=== PATIENT | female | born 1945 | race Caucasian/White ===

== ENCOUNTER → 2019-10-03 09:01 | Outpatient (CLI) | payer MEDICARE, BC ==
--- NOTE | ~2019-10-03 | EC ---
PATIENT:CATALINO PETERSON DATE OF SERVICE: 10/03/19 SEX: F MEDICAL RECORD: [id number] DATE OF : 43 LOCATION:[facility] AGE OF PATIENT: 74 ADMISSION DATE: 10/03/19 REFERRING PHYSICIAN: INTERPRETING PHYSICIAN: DON CASE MD ECHOCARDIOGRAM REPORT ECHO CHARGES 4 ECHO COMPLETE Date: 10/03/19 CLINICAL DIAGNOSIS: EDEMA/SOB/ANGINA/URIBE H/O HTN ECHOCARDIOGRAPHIC MEASUREMENTS (adult normal given) AC root (d.<3.7cm) 2.9 cm LV Septum d (<1.2 cm> 1.0 cm Valve Excursion 1.6 cm LV Septum (systole) 1.3 cm Left Atria (s.<4.0cm> 3.9 cm LVPW d(<1.2cm) 0.8 cm RV (d.<2.3cm) 2.4 cm LVPW (sytole) 1.0 cm LV diastole(<5.6CM) 6.4 cm MV E-F(>70mm/sec) cm LV systole 5.7 cm LVOT Diameter 1.8 cm MV exc.(>10mm) cm Est.ejection fraction (50-75%) % DOPPLER: LVIT cm/sec A 89.0 cm/sec E 101 cm/sec LA cm/sec RVSP 62.3 mmHg LVOT 48.0 cm/sec AOP1/2T m/s Asc. Ao 128 cm/sec RVOT 33.0 cm/sec RA cm/sec PA 59.0 cm/sec AV Gradient Peak 6.6 mmHg AV Mean 3.4 mmHg AV Area 0.8 cm MV Gradient Peak 5.0 mmHg MV Mean 2.3 mmHg MV Area cm COMMENTS: OP - HC Bicycle Ii Assembler: 1 RADHA ELENA Trouble Locator Test Desk: 1 Dr. Case TAPE# PACS Pericardial Effusion N DATE OF SERVICE: Echocardiogram FINDINGS: 1. Left ventricular chamber size is dilated. Left ventricular systolic function is markedly reduced at 15% to 20%. 2. Left atrium is within normal limits. Right atrium and right ventricle chamber sizes are mildly dilated. 3. Valvular structures have normal structure and motion. ECHOCARDIOGRAM REPORT [id number] CATALINO PETERSON 4. Doppler interrogation reveals moderate mitral regurgitation, moderate tricuspid regurgitation, no other valvular insufficiency or stenosis. Pulmonary systolic pressure is significantly elevated estimated at 62 mmHg. 5. No evidence of pericardial effusion or left ventricular thrombus. TRANSINT:[id number] Voice Confirmation ID: [id number] DOCUMENT ID: [id number] DON CASE MD CC: [id number] DICTATION DATE: 10/04/19 1400 UPHOLSTERER OUTSIDE: 10/04/192215 DEP CLI 10/03/19 [facility] [address] [id number]
--- NOTE | ~2019-10-03 | ST ---
PATIENT:CATALINO PETERSON MEDICAL RECORD: [id number] SEX: F LOCATION:[facility] ORDER #: ADMISSION DATE: 10/03/19 AGE OF PATIENT: 74 REFERRING PHYSICIAN: INTERPRETING PHYSICIAN: DON SEBASTIAN MD DATE OF SERVICE: 10/03/2019 INDICATION: Angina, shortness of breath, hypertension. TECHNIQUE: She was exercised on standard Lexiscan protocol with 33 mCi of sestamibi injected at peak stress, 10 mCi were used previously for rest images. FINDINGS: Gated SPECT reveals dilated cardiomyopathy, ejection fraction markedly reduced at 16%. SPECT imaging; Cardiolite was used as myocardial perfusion agent. There is a fixed perfusion defect inferiorly and apically compatible with previous inferoapical myocardial infarction; however, there is reversible ongoing ischemia in the lateral distribution. This includes apical lateral, mid lateral, basal lateral segments. OVERALL IMPRESSION: Markedly abnormal nuclear stress test with an ischemic cardiomyopathy, ongoing ischemia, suggestive of multivessel coronary artery disease. This is a high risk abnormal nuclear stress test. TRANSINT:[id number] Voice Confirmation ID: [id number] DOCUMENT ID: [id number] DON SEBASTIAN MD CC: HOA BERRY MD [id number] DICTATION DATE: 10/04/19 1523 NANNY CAREGIVER: 10/05/19 0816 DEP CLI 10/03/19 [id number] [place] [address]
== END | disposition home or self-care (01) ==
LOC: D.HCCECHO 09:01
PROVIDERS: ATTEND Internal Medicine Interventional Cardiology
DX: I25.119 Atherosclerotic heart disease of native coronary artery with unspecified angina pectoris (principal)

== ENCOUNTER 2019-10-11 06:54 | Inpatient (IN) | payer MEDICARE, BC ==
[~2019-10-11] VITALS: Ht 165.1 cm; Wt 56.0 kg
[2019-10-11] VITALS (33 sets, daily range): BP systolic 97–129; BP diastolic 61–81; Ht 165.1 cm; Wt 56.0 kg
--- NOTE | ~2019-10-11 | HEMODYNAMI ---
PATIENT:CATALINO PETERSON MEDICAL RECORD: [id number] : 43 LOCATION:[facility] ADMISSION DATE: 10/11/19 Generatedon:10/11/201911:57 Patient name: CATALINO PETERSON Patient #: [id number] SSN: [id number] : 1945 Date of study: 10/11/2019 Page: Of Hemodynamic Procedure Report Patient Data Patient Demographics Procedure consent was obtained First Name: CATALINO Gender: Female Last Name: KRISTEN : 1945 Patient #: [id number] Age: 74 year(s) Race: SSN: [id number] Additional ID: [id number] Contact details [address]: [address] [place] [address] State: [place] City: [place] Zip code: [address] Past Medical History Allergies Allergen Reaction Date Comments Reported Other allergy 10/11/2019 PCN Admission Admission Data Admission Date: 10/11/2019 Admission Time: 6:54 Arrival Date: 10/11/2019 Arrival Time: 0:00 Admit Source: Other Insurance Payor: Medicare Room #: D.CL04 [facility] #: [id number] Height (in.): 65 BSA: 1.59 (m2) Height (cm.): 165.1 BMI: 19.8 (kg/m2) Weight (lbs.): 119 Weight (kg.): 53.98 Lab Results Lab Result Date: 10/11/2019 Lab Result Time: 0:00 Biochemistry Name Units Result Min Max BUN mg/dl 18 --(---*)-- 7 18 Creatinine mg/dl 1 --(--*-)-- 0.6 1.3 eGFR ml/min 57 *-(----)-- 90 120 NONAFRICAN CBC Name Units Result Min Max Hematocrit % 43.8 --(*---)-- 42 54 Hemoglobin g/dl 14.3 --(*---)-- 13.5 17.5 Procedure Procedure Types Cath Procedure Diagnostic Procedure LHC LH w/Coronaries FFR/IVUS FFR Initial Temporary Pacemaker Sedation Charges Moderate Sedation up to 45 minutes PCI Procedure Coronary Stent Coronary Stent Initial Coronary Stent Initial x2 Hemochron ACT Test Peripheral Cath Diagnostic Procedure [facility] Peripheral Procedures Fmkqw-Lvbfjok-Dok-Off Peripheral vascular Intervention Angioplasty Angioplasty Iliac Initial Stent Stent Iliac w/plasty Initial Procedure Description Procedure Date Procedure Date: 10/11/2019 Procedure Start Time: 10:47 Procedure End Time: 11:47 Procedure Staff Name Function Fred Case MD Performing Physician Rosi Castano RT Monitor Elizabeth Tobar RN Nurse Margaret Brenner RT Scrub Indication Angina Shortness of breath Procedure Data Cath Procedure Fluoroscopy Diagnostic fluoroscopy Total fluoroscopy Time: time: 16.2 min 16.2 min Diagnostic fluoroscopy Total fluoroscopy dose: 616 dose: 616 mGy mGy Contrast Material Contrast Material Type Amount (ml) Isovue [id number] Entry Location Entry Primary Successful Side Size (Fr) Upsize Upsize 2 Entry Closu re Successful Closure Location 1 (Fr) (Fr) Remarks Devic e Remarks Radial Right 6 Fr Short artery Femoral Right 5 Fr 6 Fr 6 Fr Exose al artery Short Mid-Length Femoral Left 6 Fr Exose al artery Mid-Length Femoral Right 6 Fr Short Manua l vein Compr ession Radial Right 6 Fr Short Mecha nical artery Compr ession Estimated blood loss: 10 ml Diagnostic catheters Device Type Used For End Catheter Placement DIAGNOSTIC [place] 110cm 5 Procedure Fr catheter ([id number]) MULTIPACK Pigtail 5 Fr Procedure catheter MULTIPACK JL 4.0 5Fr Procedure catheter MULTIPACK 3DRC 5Fr Procedure catheter Procedure Complications No complications Procedure Medications Medication Administration Route Dosage 0.9% NaCl I.V. 100 ml/hr Oxygen etCO2 Nasal cannula 2 l/min Lidocaine 2% added to field 20 Heparin Flush Bag added to field 2 bags (1000units/500ml NS) Radial Cocktail added to field 1 syringe (Verapamil 2mg/Nitro 400mcg/Heparin 1500units) Versed I.V. 2 mg Fentanyl I.V. 50 mcg Heparin Bolus I.V. 4000 units Integrilin (Bolus I.V. 5 ml 2mg/ml) Integrilin (Bolus wasted 5 ml 2mg/ml) Plavix P.O. 600 mg Fentanyl I.V. 25 mcg Atropine I.V. 1 mg Dopamine I.V. drip 5 mcg/kg/min (400mg/250ml D5W) Integrilin (Bolus wasted 5 ml 2mg/ml) Integrilin (Bolus wasted 5 ml 2mg/ml) Oxygen NRB 15 l/min Integrilin Drip I.V. drip 4.5 ml/hr (75mg/100ml) Hemodynamics Rest BSA: 1.59 (m2) HGB: 14.3 (g/dl) O2 Consumption: Estimated: 162.31 (ml/min) O2 Co nsumption indexed: Estimated:102.08 (ml/min/m) Heart Rate: 99 (bpm) Snapshots Pre Cath Intra NCS Post Cath Vital Signs Time Heart Resp SPO2 etCO2 NIBP (mmHg) Rhythm Pain Sedation Rate (ipm) (%) (mmHg) Status Level (bpm) 10:26:58 110 26 95 20.8 117/83(99) NSR 0 (11) 10(A) , No pain 10:31:05 95 23 97 24.5 111/80(91) NSR 0 (11) 10(A) , No pain 10:35:11 94 21 96 14.9 111/78(94) NSR 0 (11) 10(A) , No pain 10:39:15 94 21 96 23.8 107/85(97) NSR 0 (11) 10(A) , No pain 10:43:21 97 20 95 16.3 107/73(95) NSR 0 (11) 10(A) , No pain 10:47:26 95 18 96 22.3 120/83(105) NSR 0 (11) 10(A) , No pain 10:51:36 99 27 95 24.5 114/76(99) NSR 0 (11) 10(A) , No pain 10:55:44 82 23 94 2.2 102/75(85) NSR 0 (11) 10(A) , No pain 10:59:46 108 17 96 11.9 106/78(100) ST 0 (11) 10(A) , No pain 11:03:52 102 16 94 3.7 113/76(87) ST 0 (11) 10(A) , No pain 11:08:00 98 18 94 1.4 108/72(96) NSR 0 (11) 9(A) , No pain 11:12:03 99 17 85 4.4 113/76(95) NSR 0 (11) 9(A) , No pain 11:16:07 78 20 94 2.9 83/60(77) NSR 0 (11) 9(A) , No pain 11:21:06 44 23 97 14.9 Measuring SB 0 (11) 9(A) , No pain 11:21:55 80 28 87 11.9 Time Paced 0 (11) 9(A) Exceeded , No pain 11:23:48 79 30 96 13.4 58/40(51) Paced 0 (11) 9(A) , No pain 11:28:47 79 29 98 11.1 Measuring Paced 0 (11) 3(A) , No pain 11:29:42 133 29 96 2.2 68/50(57) Paced 0 (11) 3(A) , No pain 11:34:21 82 22 97 0.7 105/68(88) Paced 0 (11) 3(A) , No pain 11:39:16 92 10 98 0 107/74(94) Paced 0 (11) 3(A) , No pain 11:43:26 87 31 98 2.9 104/63(87) NSR 0 (11) 4(A) , No pain 11:47:29 93 27 100 8.9 103/72(97) NSR 0 (11) 4(A) , No pain 11:52:10 97 17 100 0.7 121/76(93) NSR 0 (11) 4(A) , No pain 11:56:22 99 32 100 4.4 121/72(108) NSR 0 (11) 4(A) , No pain Medications Time Medication Route Dose Verified Delivered Reason Notes Effectiveness by by 10:26:07 0.9% NaCl I.V. 100 ml/hr Fred Johnson used for Evie Tobar gusset folder 10:26:16 Oxygen etCO2 2 l/min Fred Bensona used for Nasal Evie Tobar procedure cannula RN 10:26:22 Lidocaine 2% added 20ml vial Fred Ibarra for local to Evie Case MD anesthetic field 10:26:27 Heparin Flush added 2 bags Fred Ibarra used for Bag to Evie Case MD procedure (1000units/500ml field NS) 10:26:32 Radial Cocktail added 1 syringe Fred Ibarra used for (Verapamil to Evie Case MD procedure 2mg/Nitro field 400mcg/Heparin 1500units) 10:47:26 Versed I.V. 2 mg Fred Eliazbeth for sedation Evie Tobar RN 10:47:30 Fentanyl I.V. 50 mcg Fred Elizabeth for sedation Evie Tobar RN 11:00:06 Heparin Bolus I.V. 4000 units Fred Elizabeth for verified Evie Tobar anticoagulation with DrJuan Pablo Case 11:00:20 Integrilin I.V. 5 ml Fred Elizabeth for (Bolus 2mg/ml) Evie Tobar antiplatelet RN therapy 11:00:30 Integrilin wasted 5 ml Fred Elizabeth for (Bolus 2mg/ml) Evie Tobar antiplatelet RN therapy 11:00:46 Plavix P.O. 600 mg Fred Elizabeth for Evie Tobar antiplatelet RN therapy 11:00:58 Fentanyl I.V. 25 mcg Fred Elizabeth for sedation Evie Tobar RN 11:20:24 Atropine I.V. 1 mg Fred Elizabeth Per physician Evie Tobar RN 11:21:49 Oxygen NRB 15 l/min Fred Elizabeth used for Evie Tobar gusset folder 11:25:42 Dopamine I.V. 5 Fred Elizabeth Per physician (400mg/250ml drip mcg/kg/min Evie Tobar D5W) RN 11:25:54 Integrilin wasted 5 ml Fred Elizabeth for (Bolus 2mg/ml) Evie Tobar antiplatelet RN therapy 11:28:47 Integrilin wasted 5 ml Fred Elizabeth for (Bolus 2mg/ml) Evie Tobar antiplatelet RN therapy 11:53:14 Integrilin Drip I.V. 4.5 ml/hr Fred Elizabeth for (75mg/100ml) drip Evie Tobar antiplatelet RN therapy Procedure Log Time Note 18:40:47 UNABLE TO GAIN ACCESS RADIUAL GOING GROIN FOR ACCESS 10:11:29 Diagnostic Cath Status : Elective 10:11:56 Indication : Angina 10:12:02 Indication : Shortness of breath 10:12:23 Procedure Status Elective Heart Cath (OP). 10:12:32 Margaret Brenner RT(R) sent for patient. Start room use. 10:12:34 Time tracking: Regular hours (M-F 7:00 - 5:00) 10:12:38 Plan of Care:Hemodynamics will remain stable., Cardiac rhythm will remain stable., Comfort level will be maintained., Respiratory function will remain adequate., Patient/ family verbilizes understanding of procedure., Procedure tolerated without complication., Recovers from procedure without complications.. 10:16:00 Risk of Mortality: .1 10:16:03 Risk of blood transfusion: .6 10:16:05 Risk of AMMY: .6 10:16:08 Alarms reviewed by R. N. 10:16:08 Sharps counted by scrub and verified by R.N. 10:16:12 Lab results completed and on chart. 10:17:17 Lab Result : BUN 18 mg/dl 10:17:17 Lab Result : Creatinine 1 mg/dl 10:17:17 Lab Result : eGFR NONAFRICAN 57 ml/min 10:17:17 Lab Result : Hemoglobin 14.3 g/dl 10:17:17 Lab Result : Hematocrit 43.8 % 10:17:39 Patient received from Pre/Post Procedure Room to CCL 1 Alert and oriented. Tansferred to table in Supine position. 10:17:44 Warm blankets applied, and mary hugger turned on for patient comfort. 10:17:48 Signed procedure consent form obtained from patient. 10:17:49 Correct patient and procedure confirmed by team. 10:17:50 ECG and BP/O2 sat monitors applied to patient. 10:18:20 H&P Date Dictated: 09/18/2019 Within 30 days and on chart.. 10:18:21 Pre-procedure instructions explained to patient. 10:18:22 Pre-op teaching completed and patient verbalized understanding. 10:18:23 Family in waiting room. 10:18:25 Patient NPO since Midnight. 10:19:26 Patient allergic to Other allergyPCN 10:19:30 Is the patient allergic to Iodine/contrast media? No. 10:19:33 Was the patient premedicated? Yes 10:19:41 Is patient on blood thinner?No 10:19:43 Patient diabetic? Yes. 10:19:45 If diabetic: On Metformin? Yes 10:19:55 Patient not . Patient is over age 54. 10:19:56 ----Pre-sedation anethsthesia assessment.---- 10:20:20 Previous problem with sedation/anesthesia? No ? 10:20:22 Snore? Yes 10:20:23 Sleep apnea? No 10:20:30 Deviated septum? No 10:20:32 Opens mouth fully? Yes 10:20:33 Sticks out tongue? Yes 10:20:35 Airway obstruction? No ? 10:20:36 Dentures? No ? 10:20:40 Pre procedure: right dorsailis pedis pulse 2+ Normal; easily identifiable; not easily obliterated 10:25:58 Vital chart was started 10:26:07 0.9% NaCl 100 ml/hr I.V. was administered by Elizabeth Tobar RN; used for procedure; Verbal order read back and verified. 10:26:16 Oxygen 2 l/min etCO2 Nasal cannula was administered by Elizabeth Tobar RN; used for procedure; Verbal order read back and verified. 10:26:22 Lidocaine 2% 20ml vial added to field was administered by Fred Case MD; for local anesthetic; Verbal order read back and verified. 10:26:27 Heparin Flush Bag (1000units/500ml NS) 2 bags added to field was administered by Fred Case MD; used for procedure; Verbal order read back and verified. 10:26:32 Radial Cocktail (Verapamil 2mg/Nitro 400mcg/Heparin 1500units) 1 syringe added to field was administered by Fred Case MD; used for procedure; Verbal order read back and verified. 10:30:41 Modified Humble's test Ulnar < 7 seconds 10:30:44 Patient pain scale 0/10 ?. 10:30:52 IV patent on arrival in right forearm with 0.9% NaCl at [facility]. 10:30:58 Stress Test: no; N/A ? 10:31:03 Right Radial & Right Groin area was prepped with chlora-prep and draped in sterile fashion 10:31:13 Baseline sample Acquired. 10:31:15 Full Disclosure recording started 10::33 Rhythm: sinus rhythm 10:31:47 Use device set Radial Dx or PCI 10:31:48 ACIST Syringe (42364) opened to sterile field. 10:31:49 Medline Cath Pack ([id number]) opened to sterile field. 10:31:49 Bag Decanter (2001S) opened to sterile field. 10:31:50 ACIST Hand Control (31957) opened to sterile field. 10:31:51 ACIST Manifold (34221) opened to sterile field. 10:31:51 Tegaderm 4 x 4 (1626W) opened to sterile field. 10:31:52 MBrace Wrist Support ([id number]) opened to sterile field. 10:31:54 EMERALD Guide Wire (631-456) opened to sterile field. 10:31:55 SHEATH 6FR RAIN ([id number]) opened to sterile field. 10:33:20 Arrival Date: 10/11/2019 12:00:00 AM 10:33:21 Admit Source: Other 10:33:34 Patient Weight : 119 lbs 10:33:41 Patient Height : 65 inches 10:33:49 Insurance Payor : Medicare 10:45:00 --------ALL STOP TIME OUT------ 10:45:01 Final Timeout: patient, procedure, and site verified with staff and physician. All members of the team are in agreement. 10:45:06 Right Radial & Right Groin site verified by team. 10:45:11 Fire Safety Assessment: A--An alcohol-based skin anteseptic being used preoperatively., C--Open oxygen or nitrous oxide is being used., D--An ESU, laser, or fiber-optic light is being used. 10:45:15 Physical assessment completed. ASA score P 2 - A patient with mild systemic disease as per Fred Case MD. 10:45:27 3a) 45-59 Moderately reduced kidney function. 10:45:31 Maximum allowable contrast dose (3.7 X eGFR X 0.75)158 ml. 10:45:35 Sedation plan: IV Moderate Sedation Medication:Versed, Fentanyl 10:46:52 Procedure started. 10:47:04 Local anesthetic to right radial artery with Lidocaine 2% by Fred Case MD.INITIAL ACCESS ONLY 10:47:26 Versed 2 mg I.V. was administered by Elizabeth Tobar RN; for sedation; Verbal order read back and verified. 10:47:30 Fentanyl 50 mcg I.V. was administered by Elizabeth Amadou RN; for sedation; Verbal order read back and verified. 10:47:36 A 6 Fr Short sheath was inserted into the Right Radial artery 10:47:43 A DIAGNOSTIC [place] 110cm 5 Fr catheter ([id number]) was advanced over the wire and used for Procedure. 10:50:27 A 5 Fr sheath was inserted into the Right Femoral artery 10:50:59 Use device set Femoral Dx 10:51:15 DIAGNOSTIC Multipack 5Fr catheter set (OC2005) opened to sterile field. 10:51:31 SHEATH 5FR Gilead (JAN236) opened to sterile field. 10:51:55 GLIDE WIRE ANGLE 260cm ([id number]) opened to sterile field. 10:52:07 Local anesthetic to right femoral artery with Lidocaine 2% by Fred Case MD.ADDITIONAL ACCESS 10:52:33 A MULTIPACK Pigtail 5 Fr catheter was advanced over the wire and used for Procedure. 10:52:39 Injector settings: Ml/sec: 10, Volume: 20, 10:52:43 LV gram done using HERRING 10:52:50 EF : 20 % 10:53:28 Right leg runoff performed. 10:53:45 Left leg runoff performed. 10:54:01 Catheter exchanged over wire. 10:54:36 A MULTIPACK JL 4.0 5Fr catheter was advanced over the wire and used for Procedure. 10:55:03 LCA angiography performed. 10:55:53 A MULTIPACK 3DRC 5Fr catheter was advanced over the wire and used for Procedure. 10:56:45 Catheter removed. 10:56:46 Proceeding to intervention. 10:56:54 Sheath upsized to a 6 Fr Short. 10:58:59 SHEATH 6FR Brite Tip 35cm ([id number]) opened to sterile field. 11:00:06 Heparin Bolus 4000 units I.V. was administered by Elizabeth Tobar RN; for anticoagulation; verified with Dr. Case Verbal order read back and verified. 11:00:10 INFLATOR Merit BasixCompak (XD6490) opened to sterile field. 11:00:10 CHOICE PT Extra Support 182cm wire ([id number]) opened to sterile field. 11:00:20 Integrilin (Bolus 2mg/ml) 5 ml I.V. was administered by Elizabeth Tobar RN; for antiplatelet therapy; Verbal order read back and verified. 11:00:30 Integrilin (Bolus 2mg/ml) 5 ml wasted was administered by Elizabeth Tobar RN; for antiplatelet therapy; Verbal order read back and verified. 11:00:46 Plavix 600 mg P.O. was administered by Elizabeth Tobar RN; for antiplatelet therapy; Verbal order read back and verified. 11:00:58 Fentanyl 25 mcg I.V. was administered by Elizabeth Tobar RN; for sedation; Verbal order read back and verified. 11:01:06 Local anesthetic to left femerol artery with Lidocaine 2% by Fred Case MD.ADDITIONAL ACCESS 11:01:29 SHEATH 6FR Brite Tip 35cm ([id number]) opened to sterile field. 11:01:55 SHEATH 6FR Gilead (SOZ412) opened to sterile field. 11:01:57 SHEATH 6FR Gilead (PIM436) opened to sterile field. 11:02:18 A 6 Fr Mid-Length sheath was inserted into the Left Femoral artery 11:02:28 Sheath upsized to a 6 Fr Mid-Length. 11:03:43 GLIDEWIRE ADVANCED. 11:04:40 Procedure type changed to Cath procedure, Diagnostic procedure, LHC, LHC w/Coronaries, FFR/IVUS, FFR Initial, Temporary Pacemaker, Sedation Charges, Moderate Sedation up to 45 minutes, PCI procedure, Coronary Stent, Coronary Stent Initial, Coronary Stent Initial x2, Hemochron ACT Test, Peripheral Cath Diagnostic Procedure, [facility] Peripheral Procedures, Qwvua-Ntggwfu-Nny-Off, Peripheral vascular Intervention, Angioplasty, Angioplasty Iliac Initial, Stent, Stent Iliac w/plasty Initial 11:05:05 Place stent Inflation Number: 1 A ANNABEL 7 x 18 x 135 stent ([id number]) was prepped and advanced across the Ostial Common Iliac, Left . The stent was deployed at 13 KASEY for 0:00 (min:sec) . 11:05:32 Stent catheter was removed intact over wire. 11:06:00 J WIRE ADVANCED ON RT SIDE ILIAC. 11:06:32 Inflation number: 1 The stent balloon was then re-inflated across the Ostial Common Iliac, Right to 13 KASEY for 0:00 (min:sec) . 11:06:54 Stent catheter was removed intact over wire. 11:07:36 Wire removed. 11:07:49 GLIDEWIRE REMOVED FROM LT GROIN. 11:08:06 6 Fr XBLAD 3.5 guide catheter was inserted over the wire 11:09:35 FFR/IFR wire advanced. 11:10:21 Wire advanced across lesion. 11:11:52 mLAD lesion measured at .81 with IFR 11:12:06 Pre PCI Site: [place] mLAD has 80% stenosis. 11:13:37 Place stent Inflation Number: 1 A LIZZY RX 3.0 x 18 stent ([id number]) was prepped and advanced across the Mid LAD . The stent was deployed at 17 KASEY for 0:00 (min:sec) . 11:14:13 Stent catheter was removed intact over wire. 11:15:28 Wire removed. 11:15:41 CHOICE ES 182 wire advanced. 11:15:50 Wire redirected to CIRC. 11:16:19 Inflate balloon Inflation number: 1 A EUPHORA 2.5 x 20 Balloon ([id number]) was prepped and advanced across the Mid CX , then inflated to 13 KASEY for 0:00 (min:sec) . 11:16:22 Inflation number: 2 The EUPHORA 2.5 x 20 Balloon ([id number]) was reinflated across the Mid CX , to 13 KASEY for 0:00 (min:sec) . 11:16:49 Inflation number: 3 The EUPHORA 2.5 x 20 Balloon ([id number]) was reinflated across the Mid CX , to 13 KASEY for 0:00 (min:sec) . 11:18:13 Inflation number: 4 The EUPHORA 2.5 x 20 Balloon ([id number]) was reinflated across the Mid CX , to 13 KASEY for 0:00 (min:sec) . 11:18:22 Inflation number: 5 The EUPHORA 2.5 x 20 Balloon ([id number]) was reinflated across the Mid CX , to 17 KASEY for 0:00 (min:sec) . 11:20:24 Atropine 1 mg I.V. was administered by Elizabeth Tobar RN; Per physician; Verbal order read back and verified. 11:20:55 A 6 Fr Short sheath was inserted into the Right Femoral vein 11:21:23 Pt. bagged with bag/mask with 100% O2 by Elizabeth Tobar RN 11:21:34 Temporary pacer inserted 11:21: Oxygen 15 l/min NRB was administered by Elizabeth Tobar RN; used for procedure; Verbal order read back and verified. ::54 Temporary pacer turned on with the following settings: Rate 80, MA 10, Sensitivity ?. :49 Inflation number: 6 The EUPHORA 2.5 x 20 Balloon ([id number]) was reinflated across the Mid CX , to 17 KASEY for 0:00 (min:sec) . 11::59 Inflation number: 7 The EUPHORA 2.5 x 20 Balloon ([id number]) was reinflated across the Mid CX , to 17 KASEY for 0:00 (min:sec) . 11:23:24 SHEATH 6FR Gilead ([id number]) opened to sterile field. 11:25:18 Place stent Inflation Number: 1 A LIZZY RX 2.5 x 34 stent ([id number]) was prepped and advanced across the Mid CX1 . The stent was deployed at 17 KASEY for 0:00 (min:sec) . 11::26 Stent catheter was removed intact over wire. 11::42 Dopamine (400mg/250ml D5W) 5 mcg/kg/min I.V. drip was administered by Elizabeth Tobar RN; Per physician; Verbal order read back and verified. 11::42 Place stent Inflation Number: 8 A LIZZY RX 2.75 x 34 stent ([id number]) was prepped and advanced across the Mid CX . The stent was deployed at 17 KASEY for 0:00 (min:sec) . ::48 Inflation number: 9 The stent balloon was then re-inflated across the Mid CX to 21 KASEY for 0:00 (min:sec) . ::54 Integrilin (Bolus 2mg/ml) 5 ml wasted was administered by Elizabeth Tobar RN; for antiplatelet therapy; Verbal order read back and verified. 11::07 Inflation number: 10 The stent balloon was then re-inflated across the Mid CX to 7 KASEY for 0:00 (min:sec) . 11:26:37 Balloon removed over the wire. 11:28:08 Place stent Inflation Number: 1 A LIZZY RX 3.0 x 15 stent ([id number]) was prepped and advanced across the LMCA . The stent was deployed at 17 KASEY for 0:00 (min:sec) . 11:28:23 Inflation number: 2 The stent balloon was then re-inflated across the LMCA to 21 KASEY for 0:00 (min:sec) . 11:28:44 CHOICE PT Extra Support 182cm wire ([id number]) opened to sterile field. 11:28:47 Integrilin (Bolus 2mg/ml) 5 ml wasted was administered by Elizabeth Tobar RN; for antiplatelet therapy; Verbal order read back and verified. 11:28:54 CHOICE ES 182 wire advanced. 11:28:58 Wire redirected to LAD. 11:30:38 Inflation number: 2 The stent balloon was then re-inflated across the Mid LAD to 17 KASEY for 0:00 (min:sec) . 11:32:35 The LIZZY RX 3.0 x 12 stent ([id number]) was advanced then removed because of failure to cross lesion 11:33:58 Place stent Inflation Number: 1 A LIZZY RX 3.0 x 12 stent ([id number]) was prepped and advanced across the Prox LAD . The stent was deployed at 21 KASEY for 0:00 (min:sec) . 11:34:21 Stent catheter was removed intact over wire. 11:34:25 Wire removed. 11:34:26 Guide catheter removed. 11:34:41 Temporary pacer turn off 11:35:53 Temporary pacer removed 11:36:18 Sheath removed intact; hemostasis achieved with Exoseal to the Right Femoral artery. 11:36:24 Sheath removed intact; hemostasis achieved with Exoseal to the Left Femoral artery. 11:37:39 BILATERAL GROIN SHEATH EXCHANGED TO 6FR SHORT SHEATH. 11:38:04 Sheath removed intact; hemostasis achieved with Manual Compression to the Right Femoral vein. 11:38:52 A 6 Fr Short sheath was inserted into the Right Radial artery 11:38:52 Sheath removed intact; hemostasis achieved with Mechanical Compression to the Right Radial artery. 11:39:08 EXOSEAL 6Fr (EX600) opened to sterile field. 11:39:09 EXOSEAL 6Fr (EX600) opened to sterile field. 11:39:13 Tegaderm 4 x 4 (1626W) opened to sterile field. 11:39:17 TR BAND Standard ([id number]) opened to sterile field. 11:39:21 Procedure ended.(Physican Out) 11:39:32 Fluoroscopy time 16.20 minutes. 11:39:36 Fluoroscopy dose: 616 mGy 11:39:36 Flurop Dose total: 616 11:39:42 Dose Area Product 10124 mGy/cm. 11:39:48 Contrast amount:Isovue 370 292ml. 11:39:53 Maximum allowable dose exceeded? Yes. 11:39:55 Sharps counted by scrub and verified by R.N. 11:40:01 [place] band inflated with 10cc of air. 11:40:11 Post-op/insertion site Right Femoral artery dressed using a 4 x 4 and Tegaderm. 11:40:17 Post-op/insertion site Left Femoral artery dressed using a 4 x 4 and Tegaderm. 11:40:25 Post-op/insertion site Right Femoral vein dressed using a 4 x 4 and Tegaderm. 11:40:42 Post right femoral artery:stable, soft, clean and dry 11:40:49 Post left femerol artery:stable, soft, clean and dry 11:41:04 Post right femoral vein:stable, soft, clean and dry 11:41:24 ACT drawn and resulted at GREATER THAN 400 seconds. (normal therapeutic range 180-240 seconds). 11:41:30 Post Procedure Pulses reassessed and unchanged 11:41:34 Post procedure: right dorsailis pedis pulse 2+ Normal; easily identifiable; not easily obliterated. 11:41:38 Post-procedure physical assessment completed. ASA score P 2 - A patient with mild systemic disease as per Fred Case MD. 11:41:43 Post procedure rhythm: sinus rhythm 11:41:47 Estimated blood loss: 10 ml 11:41:48 Post procedure instruction explained to patient.Patient verbalizes understanding. 11:41:49 Patient needs reinforcement of post procedure teaching. 11:46:41 ZEPHYR BAND CORRECTION 9CC OF AIR. 11:47:40 [facility] Findings: MVD- PCI performed (see procedure note) 11:47:42 Operative report dictated upon procedure completion. 11:47:43 See physician's report for complete and final results. 11:47:50 Report given to CVICU. 11:47:55 Patient transfered to CVICU with Bed. 11:47:58 Procedure ended. 11:47:58 Full Disclosure recording stopped 11:48:43 Procedure Complication : No complications 11:53:14 Integrilin Drip (75mg/100ml) 4.5 ml/hr I.V. drip was administered by Elizabeth Tobar RN; for antiplatelet therapy; Verbal order read back and verified. 11:55:55 Procedure and supply charges have been captured, reviewed, submitted and are correct. 11:55:57 Vital chart was stopped 11:56:07 ACC-PCI Only Patient was given prescriptions, or instructed by Fred Case MD to start/continue the following medications upon discharge: Plavix 11:56:09 End room use (Document Last) 11:56:43 End room use (Document Last) 11:57:17 End room use (Document Last) Intervention Summary Intervention Notes Time ActionType Lesion and Equipment Used Action# Pressure Duration Attributes 11:05:05 Place stent Ostial ANNABEL 7 x 18 1 13 00:00 Common x 135 stent Iliac, Left ([id number]) 11:06:32 Reinflate Ostial ANNABEL 7 x 18 1 13 00:00 stent Common x 135 stent balloon Iliac, ([id number]) Right 11:13:37 Place stent Mid LAD LIZZY RX 3.0 x 1 17 00:00 18 stent ([id number]) 11:16:19 Inflate Mid CX EUPHORA 2.5 x 1 13 00:00 balloon 20 Balloon ([id number]) 11:16:22 Reinflate Mid CX EUPHORA 2.5 x 2 13 00:00 balloon 20 Balloon ([id number]) 11:16:49 Reinflate Mid CX EUPHORA 2.5 x 3 13 00:00 balloon 20 Balloon ([id number]) 11:18:13 Reinflate Mid CX EUPHORA 2.5 x 4 13 00:00 balloon 20 Balloon ([id number]) 11:18:22 Reinflate Mid CX EUPHORA 2.5 x 5 17 00:00 balloon 20 Balloon ([id number]) 11:22:49 Reinflate Mid CX EUPHORA 2.5 x 6 17 00:00 balloon 20 Balloon ([id number]) 11:22:59 Reinflate Mid CX EUPHORA 2.5 x 7 17 00:00 balloon 20 Balloon ([id number]) 11:25:18 Place stent Mid CX1 LIZZY RX 2.5 x 1 17 00:00 34 stent ([id number]) 11:25:42 Place stent Mid CX LIZZY RX 2.75 x 8 17 00:00 34 stent ([id number]) 11:25:48 Reinflate Mid CX LIZZY RX 2.75 x 9 21 00:00 stent 34 stent balloon ([id number]) 11:26:07 Reinflate Mid CX LIZZY RX 2.75 x 10 7 00:00 stent 34 stent balloon ([id number]) 11:28:08 Place stent LMCA LIZZY RX 3.0 x 1 17 00:00 15 stent ([id number]) 11:28:23 Reinflate LMCA LIZZY RX 3.0 x 2 21 00:00 stent 15 stent balloon ([id number]) 11:30:38 Reinflate Mid LAD LIZZY RX 3.0 x 2 17 00:00 stent 15 stent balloon ([id number]) 11:32:35 Discard LIZZY RX 3.0 x Stent 12 stent ([id number]) 11:33:58 Place stent Prox LAD LIZZY RX 3.0 x 1 21 00:00 12 stent ([id number]) Device Usage Item Name Manufacture Quantity Catalog Number [facility] Part Current M inimal Lot# / Charge Number Stock Stock Serial# Code ACIST Syringe Acist 1 04872 764641 775548 523938 2 0 (42007) Medical Systems Inc Medline Cath Medline 1 [id number] 951019 86672 496100 5 Pack ([id number]) Bag Decanter Microtek 1 824354 26526 971021 5 () Medical Inc. ACIST Hand Acist 1 53448 135093 708509 761659 5 Control Medical (20078) Systems Inc ACIST Manifold Acist 1 58308 628030 319524 527950 5 (68714) Medical Systems Inc Tegaderm 4 x 4 3M 2 1626W 299513 901263 982969 5 (1626W) MBrace Wrist Advanced 1 140-0250-00 424399 71102 977245 5 Support Vascular (852757650) Dynamics EMERALD Guide Cardinal 1 502-819 277310 128377 067218 5 Wire (003-016) Health SHEATH 6FR Cardinal 1 4435482 977242 3594484 991388 5 RAIN (4298944) Health DIAGNOSTIC Terumo 1 40-5013 686108 189314 659674 5 [place] 110cm 5 Fr catheter (997211) DIAGNOSTIC Cardinal 1 BL2849 604608 07297 158875 3 0 Multipack 5Fr Health catheter set (YP8646) SHEATH 5FR Terumo 1 AJI963 965574 548975 273230 5 Gilead (IKX453) GLIDE WIRE Terumo 1 ZZ7652 451951 470204 217137 5 ANGLE 260cm (EB3550) MULTIPACK Cardinal 1 556042 5 Pigtail 5 Fr Health catheter MULTIPACK JL Cardinal 1 481903 5 4.0 5Fr Health catheter MULTIPACK 3DRC Cardinal 1 979199 5 5Fr catheter Health SHEATH 6FR Cardinal 2 702473M 974362 112333 980390 1 Brite Tip 35cm Health (947877I) INFLATOR Merit Merit 1 QZ0427 532520 824291 199196 1 5 DNA SEQ (ND6500) CHOICE PT [place] 2 [id number] 102735 595630 746567 5 Extra Support Scientific 182cm wire ([id number]) SHEATH 6FR Terumo 3 MAR648 627976 097035 739899 4 0 Gilead (XVT541) ANNABEL 7 x 18 Cardinal 1 [id number] 749471 599578 683079 5 [id number] x 135 stent Health ([id number]) LIZZY RX 3.0 x Medtronic 1 [id number] 307588 6732694 713826 5 [id number] 18 stent ([id number]) EUPHORA 2.5 x Medtronic 1 [id number] 058085 885464 613826 5 [id number] 20 Balloon ([id number]) LIZZY RX 2.5 x Medtronic 1 [id number] 859461 3938203 387386 5 [id number] 34 stent ([id number]) LIZZY RX 2.75 x Medtronic 1 [id number] 803298 5332564 079499 5 [id number] 34 stent ([id number]) LIZZY RX 3.0 x Medtronic 1 [id number] 787741 7006252 674847 5 [id number] 15 stent ([id number]) LIZZY RX 3.0 x Medtronic 1 [id number] 082420 5230062 359303 5 [id number] 12 stent ([id number]) EXOSEAL 6Fr Cardinal 2 EX600 757173 063491 032012 1 0 (EX600) Health TR BAND Terumo 1 [id number] 850517 816361 422956 4 0 Standard (PYE08DMW) Signature Audit Bernie Stage Time Signature Unsigned Intra-Procedure 10/11/2019 Rosi Castano 11:56:43 AM RT(R) Intra-Procedure 10/11/2019 Elizabeth Tobar RN 11:57:17 AM Intra-Procedure 10/11/2019 Fred Case MD 11:57:53 AM [facility] [address] [place] [address]
[2019-10-11] MEDS ORDERED: TYLENOL W/CODEI1 TAB PO (07:56)
[2019-10-11] MEDS ORDERED: SOMA350 MG PO (07:56)
[2019-10-11] MEDS ORDERED: ANORO ELLIPTA1 EACH INH (07:56)
[2019-10-11] MEDS ORDERED: ALBUTEROL SULF8.5 GM INH (07:58)
[2019-10-11] MEDS ORDERED: LOVASTATIN20 MG PO (07:58)
[2019-10-11] MEDS ORDERED: ROPINIROLE HCL1 MG PO (07:58)
[2019-10-11] MEDS ORDERED: VOLTAREN75 MG PO (07:58)
[2019-10-11] MEDS ORDERED: FUROSEMIDE20 MG PO (07:58)
[2019-10-11 08:18] LABS: BASOPHILS 0.2 % (0-2); EOSINOPHILS 0.2 % (0-7); HEMATOCRIT 43.8 % (36.0-48.0); HEMOGLOBIN 14.3 g/dL (12-16); IMMATURE GRANULOCYTES 0.1 % (0-5); LYMPHOCYTES 12.5 % (15-50); MCH 30.8 pg (26.0-34.0); MCHC 32.6 g/dL (31.0-37.0); MCV 94.4 fL (80.0-100.0); MEAN PLATELET VOLUME 10.2 fL (7.4-10.4); MONOCYTES 9.7 % (2-11); NEUTROPHILS 77.3 % (40-80); PLATELET COUNT 284 10x3/uL (130-400); RBC 4.64 10x6/uL (4.00-5.40); RDW 15.4 % (11.5-14.5); WBC 8.9 10x3/uL (4.8-10.8)
[2019-10-11 08:26] LABS: ANION GAP 11.2 mmol/L (8-16); CALCIUM 8.6 mg/dL (8.5-10.1); CARBON DIOXIDE 31.7 mmol/L (21.0-32.0); POTASSIUM - SERUM 3.9 mmol/L (3.5-5.1)
[2019-10-11] MEDS ORDERED: GLUCOPHAGE500 MG PO (09:45)
--- NOTE | 2019-10-11 12:20 | NUR ---
PATIENT RECEIVED FROM SUPERVISOR ASSEMBLY VIA BED, PATIENT LETHARGIC, RR - 13, BBS CLEAR AND EQUAL, CM - ST RATE 111 WITH OCCASSIONAL PVC'S, MULTIFOCAL, BP 126/74, AROUSES TO REPEATED VERBAL STIMULUS INTERMITTENT IN FOLLOWING COMMANDS. TR BAND RIGHT WRIST, BRUISING, SWELLING NOTED, TR BAND REMAINS INFLATED, SMALL AMOUNT OF BLOOD NOTED TO 2X2 UNDER TR BAND. CAP REFILL DISTAL PRESENT. IV 20 GA TO RIGHT FA, INFUSING DOPAMINE AT 2.5 MCG/KG/MIN AND INTEGRILIN AT 4.5 ML/HR, W/O DIFFICULTY OR S/S OF INFILTRATION. NS INFUSING AT 100 ML/HR FOR TOTAL OF 400 ML. BILATERAL DP AND PT PULSES PRESENT AND +1. LEFT RADIAL PULSE IS +2. ON NRB AT 15 LPM WITH SPO2 - 99%. HEAD TO TOE ASSESSMENT COMPLETED.
--- NOTE | 2019-10-11 12:27 | NUR ---
PATIENT PLACED ON NC AT 6 LPM, DESATS TO 86%, NRB REPLACED AT 15 LPM WITH SPO2 AT 100%.
--- NOTE | 2019-10-11 12:50 | NUR ---
PATIENTS AND DAUGHTER AT ROOM UPDATED AND QUESTIONS ANSWERED. VSS.
--- NOTE | 2019-10-11 14:17 | NUR ---
PATIENT LETHARGIC, AROUSES TO VOICE, FOLLOWING COMMANDS, DENIES ANY PAIN OR DISCOMFORT. WANTS TO SIT UP, REITERATED THE NEED TO LAY FLAT WITH LEGS STRAIGHT UNTIL 1630 HOURS. PLACED ON HIGH FLOW NC AT 12 LPM SPO2 - 92%. DESATED TO 88% ON NC AT 5 LPM. VSS.
--- NOTE | 2019-10-11 15:00 | NUR ---
REASSESSMENT COMPLETED. VSS. PATIENT AWAKE AND ALERT, ORIENTED X 4, FOLLOWING COMMANDS. RIGHT WRIST WITH NO CHANGES NOTED AND RIGHT/LEFT GROIN WITH NO CHANGES NOTED. DP AND PT PULSES BILATERALLY +1.
--- NOTE | 2019-10-11 15:09 | NUR ---
SPOKE TO RENUKA CINTRON RN WITH SHED BOSS REGARDING PATIENT NEEDING 600 MG OF PLAVIX PO ONCE AWAKE ENOUGH TO SWALLOW, DID NOT RECEIVE LOADING DOSE IN SHED BOSS. TO GIVE 600 MG PLAVIX TODAY ONCE ABLE PER DR. SEBASTIAN.
--- NOTE | 2019-10-11 15:19 | NUR ---
PATIENT TURNED TO RIGHT SIDE, LEGS STRAIGHT TO REPOSION. VSS. DOPAMINE GTT STOPPED, BP 123/66 (85) HR 114. SPO2 - 96%, O2 DECREASED TO 10 LPM VIA HIGH FLOW NC, CONTINUE TO MONITOR.
--- NOTE | 2019-10-11 15:46 | NUR ---
PATIENT C/O OF ACID REFLUX PAGED DR. SEBASTIAN. TR BAND RELEASED TO HALF OF AIR. MONITORING FOR BLEEDING.
--- NOTE | 2019-10-11 16:04 | NUR ---
SPOKE TO DR. BERNAL ORDERS 40 MG PROTONIX. PATIENTS DAUGHTER AND AT ROOM UPDATED AND QUESTIONS ANSWERED. NO BLEEDING NOTED TO RIGHT WRIST.
--- NOTE | 2019-10-11 16:19 | NUR ---
SPO2 - 96%, O2 DECREASED TO 8 LPM VIA HIGH FLOW NC. WILL CONTINUE TO MONITOR.
--- NOTE | 2019-10-11 16:34 | NUR ---
PATIENTS STATES GASTRIC REFLUX IMPROVED SINCE PROTONIX. RIGHT WRIST WITH NO CHANGES SINCE ARRIVAL FROM TRAVEL OT, PRESSURE RELEASED FROM TR BAND. WILL CONTINUE TO MONITOR. SPO2 - 95%, O2 DECREASED TO 6 LPM.
--- NOTE | 2019-10-11 18:45 | NUR ---
VSS. PATIENT ATE APPROXIMATELY 50% OF DINNER TRAY.
--- NOTE | 2019-10-11 19:00 | NUR ---
REPORT RECEIVED. INITIAL ASSESSMENT COMPLETE PER ICU SHIFT ASSESSMENT. PT ALERT AND ORIENTED DENIES PAIN, CP OR SOB. CM READING SR-ST WITH OCC PAC ALARMS ON AND AUDIBLE. RIGHT WRIST AND FOREARM WITH BRUISING NOTED FROM ATTEMPT FOR CATH SITE. BILATERAL GROIN DRESSINGS CLEAN DRY AND INTACT SOME BRUISING NOTED SOFT TO TOUCH NO DRAINAGE OR BLEEDING NOTED. PT DENIES ABD OR LOW BACK PAIN. BILATERAL PEDAL PULSES PALPABLE AND PER DOPPLER. EDUCATED PT ON SIGNS AND SYMPTOMS TO REPORT SHE VERBALIZES GOOD UNDERSTANDING. VSS WILL CONTINUE TO MONITOR
--- NOTE | 2019-10-11 21:00 | NUR ---
FAMILY AT BEDSIDE FOR VISITATION UPDATE GIVEN AND QUESTIONS ANSWERED
--- NOTE | 2019-10-11 21:30 | NUR ---
ANSWERED PTS CALL LIGHT SHE C/O REFLUX STATES SHE GETS IT ALOT AT HOME AND USUALLY TAKES MEDS AT HOME ORDER FOR TUMS OBTAINED AND GIVEN WILL MONITOR
--- NOTE | 2019-10-11 23:00 | NUR ---
REASSESSMENT COMPLETE NO CHANGES. PT DENIES PAIN STATES TUMS HELPED REFLUX. PULSES PALPABLE BILATERAL GROIN DRESSINGS CLEAN DRY AND INTACT VSS WILL CONTINUE TO MONITOR
[2019-10-12] VITALS (10 sets, daily range): BP systolic 110–124; BP diastolic 64–80
--- NOTE | 2019-10-12 02:15 | NUR ---
ANSWERED PTS CALL LIGHT PT NEEDS TO USE BATHROOM PLACED ON BEDPAN. NO BM JUST GAS VSS DENIES PAIN VSS
--- NOTE | 2019-10-12 03:00 | NUR ---
REASSESSMENT MADE NO CHANGES PEDAL PULSES PALPABLE NO CHANGES WITH YARELY GROIN DRESSINGS CPOC
--- NOTE | 2019-10-12 04:00 | NUR ---
PT RESTING EYES CLOSED VSS NO DISTRESS NOTED WILL CONTINUE TO MONITOR
--- NOTE | 2019-10-14 11:13 | OP ---
PATIENT NAME: CATALINO PETERSON MEDICAL RECORD: [id number] :43 LOCATION:D.CVI D.CV08 ADMISSION DATE:10/11/19 SURGEON: DON SEBASTIAN MD DATE OF OPERATION: 10/11/2019 PROCEDURES: 1. PTCA stent left main. 2. PTCA stent left circumflex. 3. PTCA stent LAD. 4. IFR. 5. Left heart catheterization. 6. Selective coronary angiography. 7. Left ventriculogram. INDICATION: Unstable angina and coronary artery disease. PROCEDURE IN DETAIL: After informed consent was obtained and after a detailed description of risks, benefits as well as alternative therapies, the patient elected to proceed with angiogram and angioplasty. FINDINGS: The left ventriculogram was performed in standard 30-degree HERRING view, reveals global hypokinesis throughout all segments. Overall ejection fraction is 20%. SELECTIVE CORONARY ANGIOGRAPHY: 1. Left main has mild irregularities, but no flow-limiting stenosis. 2. The left circumflex has 90% to 95% stenosis. 3. The left anterior descending has 80% stenosis proximally. An IFR was abnormal. 4. The right coronary has 95% stenosis followed by 100% stenosis of the PLV. The 95% stenosis does affect the PDA. The PLV is fed via collaterals off the circumflex. PTCA STENT OF THE LEFT ANTERIOR DESCENDING: The stents used were 3.0 x 18 and 3.0 x 12. Result was 0% residual stenosis. PTCA STENT OF THE LEFT CIRCUMFLEX: We ballooned the circumflex, then the circumflex had no significant flow. She became hypotensive with this and bradycardic. This required temporary pacemaker placement. She was stabilized, we were able to stent the circ with a 2.5 x 34, 2.75 x 34. At this point there was a compromise flow in the left main from a dissection, it tracked back. We then stented the left main with a 3.0 x 15, all Parish stents. Result was 0% residual stenosis. OVERALL IMPRESSION: Successful percutaneous transluminal coronary angioplasty stent of left main, left circumflex and left anterior descending, all going from 80% to 95% initial stenosis to 0% residual. TRANSINT:[id number] Voice Confirmation ID: [id number] DOCUMENT ID: [id number] OPERATIVE REPORT [id number] KRISTENCATALINO DON SEBASTIAN MD at 1113 CC: [id number] DICTATION DATE: 10/11/19 1155 MAIL LIST PROCESSOR: 10/11/19 1409 DIS IN 10/12/19 [place] [address] [id number] [place] [address]
--- NOTE | 2019-10-14 11:13 | HP ---
PATIENT: CATALINO PETERSON MEDICAL RECORD: [id number] ACCOUNT: [id number] LOCATION:[facility] D.CV08 : 43 ADMISSION DATE: 10/11/19 PCP: HOA BERRY MD HISTORY AND PHYSICAL EXAMINATION ADDENDUM In speaking with her prior to the procedure, she has severe leg claudication. She has a history of peripheral vascular disease, HYDRAULIC REPAIRER stent of the right leg. She now has a left leg claudication and nonhealing ulcer on the left leg as well. Her right leg has moderate claudication as well. Her claudication is just like that of her previous claudication prior to her HYDRAULIC REPAIRER stent of the right leg, but more severe. She has no good distal pulses on exam, hence at this time we will perform aortofemoral runoff as well as coronary angiography. TRANSINT:[id number] Voice Confirmation ID: [id number] DOCUMENT ID: [id number] DON SEBASTIAN MD at 1113 CC: [id number] DICTATION DATE: 10/11/19 1158 HEAVY EQUIPMENT RENTAL MANAGER: 10/11/19 1248 DIS IN 10/12/19 [place] [id number] [place] [id number]
--- NOTE | 2019-10-14 11:13 | OP ---
PATIENT NAME: CATALINO PETERSON MEDICAL RECORD: [id number] :43 LOCATION:D.CVI D.CV08 ADMISSION DATE:10/11/19 SURGEON: DON SEBASTIAN MD DATE OF OPERATION: 10/11/2019 PROCEDURES: 1. TUBE BENDING MACHINE OPERATOR stent, left iliac. 2. TUBE BENDING MACHINE OPERATOR, right iliac. 3. Aortofemoral runoff. 4. Abdominal aortography. INDICATION: Claudication, peripheral vascular disease, nonhealing ulcer, left leg. PROCEDURE IN DETAIL: After informed consent was obtained and after a detailed description of risks, benefits as well as alternative therapies, the patient elected to proceed with angiogram and angioplasty. Both femoral areas were prepped and draped in normal sterile fashion. Both femoral artery was cannulated via modified Seldinger technique with placement of 6-Colombian sheath. All catheters exchanged through this sheath. FINDINGS: Abdominal aortography was performed. The catheter was pulled down for aortofemoral runoff. Abdominal aortography reveals no significant abdominal aortic disease, no dissection or aneurysm formation. RIGHT LEG: A. Iliac: The common iliac has a previously placed stent, 50% in-stent restenosis, but no flow-limiting stenosis. The internal and external iliacs have mild irregularities, but no flow-limiting stenosis. B. Femoral system: The common superficial and deep femoral have mild irregularities, but no flow-limiting stenosis. C. Popliteal and infrapopliteal vessels are patent with 3-vessel runoff to the foot, although mildly diffusely diseased. LEFT LEG: A. Iliac: The common iliac has a 95% stenosis. The remainder of the iliacs have only mild irregularities. B. Femoral system: The common superficial and deep femoral have mild irregularities, but no flow-limiting stenosis. C. Popliteal and infrapopliteal vessels widely patent with 3-vessel runoff to the foot. TUBE BENDING MACHINE OPERATOR STENT OF LEFT ILIAC: The stent used was a 7 x 18 Cordis Jo-Ann. This caused plaque shift into the right iliac. The right iliac was ballooned with the stent balloon. Result was 0% residual throughout. OVERALL IMPRESSION: Successful percutaneous transluminal angioplasty stent of the left iliac as well as percutaneous transluminal angioplasty of the right iliac going from 95% initial stenosis to 0% residual. TRANSINT:[id number] Voice Confirmation ID: [id number] DOCUMENT ID: [id number] OPERATIVE REPORT [id number] KRISTENDON NICK MD at 1113 CC: [id number] DICTATION DATE: 10/11/19 1155 RETIREMENT BENEFITS SPECIALIST: 10/11/19 1407 DIS IN 10/12/19 [place] [address] [id number] [place] [address]
== END 2019-10-12 12:44 | disposition home or self-care (01) | DRG 246 ==
LOC: D.CATH 06:54 → D.CLR 07:30 → D.CATH 09:30 → D.CVICU 12:01 → D.CATH 12:15 → D.CVICU 10-12 12:44
PROVIDERS: ADMIT Internal Medicine Interventional Cardiology; ATTEND Internal Medicine Interventional Cardiology
PROC: 047C3ZZ Dilation of Right Common Iliac Artery, Percutaneous Approach (ICD-10-PCS; 2019-10-11)
PROC: B2111ZZ Fluoroscopy of Multiple Coronary Arteries using Low Osmolar Contrast (ICD-10-PCS; 2019-10-11)
PROC: B2151ZZ Fluoroscopy of Left Heart using Low Osmolar Contrast (ICD-10-PCS; 2019-10-11)
PROC: 4A023N7 Measurement of Cardiac Sampling and Pressure, Left Heart, Percutaneous Approach (ICD-10-PCS; 2019-10-11)
PROC: 027237Z Dilation of Coronary Artery, Three Arteries with Four or More Drug-eluting Intraluminal Devices, Percutaneous Approach (ICD-10-PCS; principal; 2019-10-11 09:30)
PROC: 047D3DZ Dilation of Left Common Iliac Artery with Intraluminal Device, Percutaneous Approach (ICD-10-PCS; 2019-10-11 09:30)
DX: I25.119 Atherosclerotic heart disease of native coronary artery with unspecified angina pectoris (principal); I70.212 Atherosclerosis of native arteries of extremities with intermittent claudication, left leg; I10 Essential (primary) hypertension; E78.5 Hyperlipidemia, unspecified; R60.9 Edema, unspecified; R06.02 Shortness of breath

== ENCOUNTER 2019-10-18 07:46 | Outpatient (CLI) | payer MEDICARE, BC ==
[~2019-10-18] VITALS: Ht 165.1 cm; Wt 55.9 kg
--- NOTE | ~2019-10-18 | HEMODYNAMI ---
PATIENT:CATALINO PETERSON MEDICAL RECORD: [id number] : 43 LOCATION:[facility] ADMISSION DATE: 10/18/19 Generatedon:10/18/201910:12 Patient name: CATALINO PETERSON Patient #: [id number] SSN: [id number] : 1945 Date of study: 10/18/2019 Page: Of Hemodynamic Procedure Report Patient Data Patient Demographics Procedure consent was obtained First Name: CATALINO Gender: Female Last Name: KRISTEN : 1945 Patient #: [id number] Age: 74 year(s) Race: SSN: [id number] Additional ID: [id number] Contact details [address]: [address] [place] [address] State: [place] City: [place] Zip code: [address] Past Medical History Allergies Allergen Reaction Date Comments Reported Other allergy 10/11/2019 PCN Other allergy 10/18/2019 pcn Admission Admission Data Admission Date: 10/18/2019 Admission Time: 7:46 Arrival Date: 10/18/2019 Arrival Time: 0:00 Height (in.): 64.96 BSA: 1.61 (m2) Height (cm.): 165 BMI: 20.57 (kg/m2) Weight (lbs.): 123.46 Weight (kg.): 56 Lab Results Lab Result Date: 10/18/2019 Lab Result Time: 0:00 Biochemistry Name Units Result Min Max BUN mg/dl 29 --(----)-* 7 18 Creatinine mg/dl 1.2 --(---*)-- 0.6 1.3 eGFR ml/min 46 *-(----)-- 90 120 NONAFRICAN CBC Name Units Result Min Max Hematocrit % 47 --(-*--)-- 42 54 Hemoglobin g/dl 15.5 --(-*--)-- 13.5 17.5 Procedure Procedure Types Cath Procedure Diagnostic Procedure Sedation Charges Moderate Sedation up to 15 minutes PCI Procedure Coronary Stent Coronary Stent Initial Hemochron ACT Test Procedure Description Procedure Date Procedure Date: 10/18/2019 Procedure Start Time: 9:51 Procedure End Time: 10:10 Procedure Staff Name Function Fred Case MD Performing Physician Margaret Brenner RT Monitor Rosi Castano RT Scrub Sage Leon RN Nurse Procedure Data Cath Procedure Fluoroscopy Diagnostic fluoroscopy Total fluoroscopy Time: 3.3 time: 3.3 min min Diagnostic fluoroscopy Total fluoroscopy dose: 119 dose: 119 mGy mGy Contrast Material Contrast Material Type Amount (ml) Isovue 300 88 Entry Location Entry Primary Successful Side Size Upsize Upsize Entry Closure Succes sful Closure Location (Fr) 1 (Fr) 2 (Fr) Remarks Device Remarks Femoral Right 6 Fr Exoseal artery Short Estimated blood loss: 10 ml Procedure Complications No complications Procedure Medications Medication Administration Route Dosage Oxygen etCO2 Nasal cannula 3 l/min Lidocaine 2% added to field 20 Heparin Flush Bag added to field 2 bags (1000units/500ml NS) 0.9% NaCl I.V. 100 ml/hr Plavix P.O. 75 mg Versed I.V. 0.5 mg Fentanyl I.V. 25 mcg Heparin Bolus I.V. 4000 units Zofran I.V. 4 mg Nitroglycerin IC/IA I.C. 100 mcg Hemodynamics Rest BSA: 1.61 (m2) HGB: 15.5 (g/dl) O2 Consumption: Estimated: 159.73 (ml/min) O2 Co nsumption indexed: Estimated:99.21 (ml/min/m) Heart Rate: 92 (bpm) Snapshots Pre Cath Intra NCS Post Cath Vital Signs Time Heart Resp SPO2 etCO2 NIBP (mmHg) Rhythm Pain Sedation Rate (ipm) (%) (mmHg) Status Level (bpm) 9:32:26 97 15 88 0 118/83(97) NSR 0 (11) 10(A) , No pain 9:36:28 100 15 100 24 121/82(98) NSR 0 (11) 10(A) , No pain 9:40:32 99 15 100 0.7 110/81(103) NSR 0 (11) 10(A) , No pain 9:44:31 102 14 100 5.9 113/82(96) NSR 0 (11) 10(A) , No pain 9:48:35 104 15 99 48 122/75(99) NSR 0 (11) 10(A) , No pain 9:53:28 108 15 100 2.2 114/76(94) NSR 0 (11) 9(A) , No pain 9:57:23 102 14 92 50.9 110/71(94) NSR 0 (11) 9(A) , No pain 10:01:25 111 14 93 51.7 108/74(99) NSR 0 (11) 9(A) , No pain 10:06:16 106 13 93 68.2 113/76(88) NSR 0 (11) 10(A) , No pain 10:10:20 107 15 85 29.2 115/73(93) NSR 0 (11) 10(A) , No pain Medications Time Medication Route Dose Verified Delivered Reason Notes Effectiveness by by 9:35:35 Zofran I.V. 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 100 Fred Cazares Per physician ml/hr Evie Leon RN 9:40:49 Plavix P.O. 75 mg Fred Cazares for Evie Leon RN antiplatelet therapy 9:51:03 Versed I.V. 0.5 Fred Cazares for sedation mg Evie Leon RN 9:51:09 Fentanyl I.V. 25 Fred Cazares for sedation mcg Evie Leon RN 9:54:26 Heparin Bolus I.V. 4000 Fred Cazares for verifi ed units Evei Leon RN anticoagulation with dr case 9:59:13 Nitroglycerin I.C. 100 Fred Ibarra for IC/IA mcg Evie Case MD vasodilation Procedure Log Time Note 9:22:11 Diagnostic Cath Status : Elective 9:22:30 Margaret Brenner RT(R) sent for patient. Start room use. 9:22:41 Time tracking: Regular hours (M-F 7:00 - 5:00) 9:22:46 Plan of Care:Hemodynamics will remain stable., Cardiac rhythm will remain stable., Comfort level will be maintained., Respiratory function will remain adequate., Patient/ family verbilizes understanding of procedure., Procedure tolerated without complication., Recovers from procedure without complications.. 9:22:51 Procedure Status Elective Heart Cath (OP). 9:22:57 Patient received from Pre/Post Procedure Room to CCL 1 Alert and oriented. Tansferred to table in Supine position. 9:23:00 Signed procedure consent form obtained from patient. 9:23:01 Warm blankets applied, and mary hugger turned on for patient comfort. 9:23:02 Correct patient and procedure confirmed by team. 9:23:14 Pre-procedure instructions explained to patient. 9:23:14 Pre-op teaching completed and patient verbalized understanding. 9:23:16 Family in waiting room. 9:23:17 Patient NPO since Midnight. 9:23:51 Patient allergic to Other allergypcn 9:31:24 ECG and BP/O2 sat monitors applied to patient. 9:31:25 Vital chart was started 9:33:29 Baseline sample Acquired. 9:33:35 Rhythm: sinus tachycardia 9:33:38 Full Disclosure recording started 9:33:41 H&P Date Dictated: 09/18/2019 Within 30 days and on chart.. 9:34:06 Is patient on blood thinner?Yes 9:34:08 ACC The patient was administered the following blood thiners within the last 24 hours: ACCPlavix 9:34:10 Patient diabetic? Yes. 9:34:11 If diabetic: On Metformin? Yes 9:34:13 If on Metformin: Last Dose? 10/16/2019 9:34:15 Patient not . Patient is over age 55. 9:34:19 Previous problem with sedation/anesthesia? No ? 9:34:20 Snore? Yes 9:34:21 Sleep apnea? No 9:34:22 Deviated septum? No 9:34:23 Opens mouth fully? Yes 9:35:08 Sticks out tongue? No 9:35:26 Airway obstruction? No ? 9:35:29 Dentures? No ? 9:35:35 Zofran 4 mg I.V. was administered by Sage Leon RN; Per physician; Verbal order read back and verified. 9:35:35 Pre procedure: right dorsailis pedis pulse Doppler 9:35:39 Patient pain scale 0/10 ?. 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 9:39:01 Risk of Mortality: .1 9:39:05 Risk of blood transfusion: .9 9:39:12 Risk of AMMY: 1 9:39:28 Lidocaine 2% 20ml vial added to field was administered by Fred Case MD; for local anesthetic; Verbal order read back and verified. 9:39:37 Heparin Flush Bag (1000units/500ml NS) 2 bags added to field was administered by Fred Case MD; used for procedure; Verbal order read back and verified. 9:39:43 0.9% NaCl 100 ml/hr I.V. was administered by Sage Leon RN; Per physician; Verbal order read back and verified. 9:40:07 Lab Result : BUN 29 mg/dl 9:40:07 Lab Result : Creatinine 1.2 mg/dl 9:40:07 Lab Result : eGFR NONAFRICAN 46 ml/min 9:40:07 Lab Result : Hemoglobin 15.5 g/dl 9:40:07 Hemodynamic formulas in Rest were re-calculated based on hemoglobin value from 10/18/2019 12:00:00 AM 9:40:07 Lab Result : Hematocrit 47 % 9:40:10 Lab results completed and on chart. 9:40:14 Right groin area was prepped with chlora-prep and draped in sterile fashion 9:40:15 Alarms reviewed by R. N. 9:40:16 Sharps counted by scrub and verified by R.N. 9:40:49 Plavix 75 mg P.O. was administered by Sage Leon RN; for antiplatelet therapy; Verbal order read back and verified. 9:42:43 Patient Weight : 123.46 lbs 9:42:59 Patient Height : 64.96 inches 9:43:04 Arrival Date: 10/18/2019 12:00:00 AM 9:47:24 Use device set CATH PACK 9:47:25 ACIST Syringe (03754) opened to sterile field. 9:47:26 ACIST Hand Control (54261) opened to sterile field. 9:47:26 ACIST Manifold (52293) opened to sterile field. 9:47:26 Medline Cath Pack ([id number]) opened to sterile field. 9:47:27 Bag Decanter (2002S) opened to sterile field. 9:47:27 EMERALD Guide Wire (502-844) opened to sterile field. 9:48:00 CHOICE PT Extra Support 182cm wire ([id number]) opened to sterile field. 9:48:00 SHEATH 6FR Bivins (HOD039) opened to sterile field. 9:48:01 INFLATOR Merit BasixCompak (ZM5469) opened to sterile field. 9:48:18 GUIDE 6FR AR 1.0 SH catheter ([id number]) opened to sterile field. 9:48:36 --------ALL STOP TIME OUT------ 9:48:36 Final Timeout: patient, procedure, and site verified with staff and physician. All members of the team are in agreement. 9:48:37 Right groin site verified by team. 9:48:40 Fire Safety Assessment: A--An alcohol-based skin anteseptic being used preoperatively., C--Open oxygen or nitrous oxide is being used., D--An ESU, laser, or fiber-optic light is being used. 9:48:44 Physical assessment completed. ASA score P 3 - A patient with severe systemic disease as per Fred Case MD. 9:48:59 3a) 45-59 Moderately reduced kidney function. 9:49:03 Maximum allowable contrast dose (3.7 X eGFR X 0.75)128 ml. 9:49:07 Sedation plan: IV Moderate Sedation Medication:Versed, Fentanyl 9:50:21 Zero performed for pressure channel P1 9:50:23 Procedure started. 9:51:03 Versed 0.5 mg I.V. was administered by Sage Leon RN; for sedation; Verbal order read back and verified. 9:51:09 Fentanyl 25 mcg I.V. was administered by Sage Leon RN; for sedation; Verbal order read back and verified. 9:51:11 Local anesthetic to right femoral artery with Lidocaine 2% by Fred Case MD.INITIAL ACCESS ONLY 9:52:03 Procedure type changed to Cath procedure, Diagnostic procedure, Sedation Charges, Moderate Sedation up to 15 minutes, PCI procedure, Coronary Stent, Coronary Stent Initial, Hemochron ACT Test 9:53:07 A 6 Fr Short sheath was inserted into the Right Femoral artery 9:53:15 6 Fr AR 1 SH guide catheter was inserted over the wire 9:54:26 Heparin Bolus 4000 units I.V. was administered by Sage Leon RN; for anticoagulation; verified with dr case Verbal order read back and verified. 9:54:59 CHOICES ES 182 wire advanced. 9:55:00 Wire advanced across lesion. 9:55:17 Pre PCI Site: [place] mRCA has 90% stenosis. 9:56:51 Place stent Inflation Number: 1 A LIZZY RX 2.5 x 08 stent ([id number]) was prepped and advanced across the Mid RCA . The stent was deployed at 11 KASEY for 0:00 (min:sec) . 9:58:14 Stent catheter was removed intact over wire. 9:59:13 Nitroglycerin IC/IA 100 mcg I.C. was administered by Fred Case MD; for vasodilation; Verbal order read back and verified. 10:00:58 Place stent Inflation Number: 1 A LIZZY RX 3.0 x 22 stent ([id number]) was prepped and advanced across the Prox RCA . The stent was deployed at 21 KASEY for 0:00 (min:sec) . 10:01:18 Stent catheter was removed intact over wire. 10:01:19 Wire removed. 10:01:20 Guide catheter removed. 10:01:27 EXOSEAL 6Fr (EX600) opened to sterile field. 10:02:01 Sheath removed intact; hemostasis achieved with Exoseal to the Right Femoral artery. 10:02:06 Procedure ended.(Physican Out) 10::29 Flurop Dose total: 119 10::29 Fluoroscopy dose: 119 mGy 10:02:39 Fluoroscopy time 03.30 minutes. 10:02:45 Dose Area Product 7224 mGy/cm. 10:02:47 Contrast amount:Isovue 300 88ml. 10:02:50 Maximum allowable dose exceeded? No. 10:02:51 Sharps counted by scrub and verified by R.N. 10:02:55 Post-op/insertion site Right Femoral artery dressed using a 4 x 4 and Tegaderm. 10:02:58 Post-procedure physical assessment completed. ASA score P 3 - A patient with severe systemic disease as per Fred Case MD. 10:03:01 Post procedure rhythm: unchanged. 10:03:03 Estimated blood loss: 10 ml 10:03:05 Post procedure instruction explained to patient.Patient verbalizes understanding. 10:03:05 Patient needs reinforcement of post procedure teaching. 10:03:59 Procedure and supply charges have been captured, reviewed, submitted and are correct. 10:04:01 Procedure Complication : No complications 10:04:04 [facility] Findings: MVD- PCI performed (see procedure note) 10:04:05 Operative report dictated upon procedure completion. 10:04:06 See physician's report for complete and final results. 10:04:07 Report given to Pre/Post Procedure Room. 10:07:36 ACT drawn and resulted at 318 seconds. (normal therapeutic range 180-240 seconds). 10:10:23 Vital chart was stopped 10:10:27 Patient transfered to Pre/Post Procedure Room with Bed. 10:10:29 Procedure ended. 10:10:29 Full Disclosure recording stopped 10:10:37 ACC-PCI Only Patient was given prescriptions, or instructed by Fred Case MD to start/continue the following medications upon discharge: Plavix 10:10:38 End room use (Document Last) 10:11:37 End room use (Document Last) 10:12:01 End room use (Document Last) Intervention Summary Intervention Notes Time ActionType Lesion and Equipment Used Action# Pressure Duration Attributes 9:56:51 Place stent Mid RCA LIZZY RX 2.5 x 1 11 00:00 08 stent ([id number]) 10:00:58 Place stent Prox RCA LIZZY RX 3.0 x 1 21 00:00 22 stent ([id number]) Device Usage Item Name Manufacture Quantity Catalog Number Hospital Part Current M inimal Lot# / Charge Number Stock Stock Serial# Code ACIST Syringe Acist 1 23723 820915 562828 033069 2 0 (82532) Mobile [employer] ACIST Hand Acist 1 43372 474686 078022 747975 5 Control Medical (96267) Systems Inc ACIST Manifold Acist 1 08058 518728 503795 270383 5 (97314) Medical Systems Inc Medline Cath Medline 1 [id number] 598655 08911 815590 5 Pack ([id number]) Bag Decanter Microtek 1 2001S 063620 84075 354362 5 () Medical Inc. EMERALD Guide Cardinal 1 502-455 530054 718855 598555 5 Wire (502-455) Health CHOICE PT [place] 1 [id number] 318206 976591 266110 5 Extra Support Scientific 182cm wire ([id number]) SHEATH 6FR Terumo 1 HDX571 993774 181097 718671 4 0 Bivins (ZNE377) INFLATOR Merit Merit 1 DG2333 146300 199282 058184 1 5 ActionFlow Medical (QH7651) GUIDE 6FR AR Medtronic 1 [id number] 763057 17733 249847 1 1.0 SH catheter ([id number]) LIZZY RX 2.5 x Medtronic 1 [id number] 990251 7971266 562849 5 [id number] 08 stent ([id number]) LIZZY RX 3.0 x Medtronic 1 [id number] 004891 2210599 784193 5 [id number] 22 stent ([id number]) EXOSEAL 6Fr Cardinal 1 EX600 606790 173378 369037 1 0 (EX600) Health Signature Audit [place] Stage Time Signature Unsigned Intra-Procedure 10/18/2019 Margaret Brenner 10:11:37 AM RT(R) Intra-Procedure 10/18/2019 Sage Leon RN 10:12:01 AM Intra-Procedure 10/18/2019 Fred Case 10:12:40 AM [facility] [address] [place] [address]
--- NOTE | ~2019-10-18 | OP ---
PATIENT NAME: CATALINO PETERSON MEDICAL RECORD: [id number] :43 LOCATION:D.[facility] ADMISSION DATE: SURGEON: DON SEBASTIAN MD DATE OF OPERATION: 10/18/2019 PROCEDURES: 1. PTCA stent RCA. 2. Selective coronary angiography. INDICATION: Angina and coronary artery disease. PROCEDURE IN DETAIL: After informed consent was obtained and after a detailed description of the risks, benefits as well as alternative therapies, the patient elected to proceed with angiogram and angioplasty. The right femoral area was prepped and draped in normal sterile fashion. Right femoral artery was cannulated via modified Seldinger technique with placement of 6-Dutch sheath. All catheters exchanged through this sheath. FINDINGS: The right coronary has 95% stenosis. This was addressed with a 2.5 x 8 and 3.0 x 22, both [place] stents. Result was 0% residual stenosis. OVERALL IMPRESSION: Successful percutaneous transluminal coronary angioplasty stent of the right coronary artery going from 90% to 95% initial stenosis to 0% residual. TRANSINT:[id number] Voice Confirmation ID: [id number] DOCUMENT ID: [id number] DON SEBASTIAN MD CC: [id number] DICTATION DATE: 10/18/19 1005 LEAD ELECTRICIAN: 10/18/19 1447 DEP CLI 10/18/19 [place] [id number] [place] [id number]
[~2019-10-18 07:46] MED LIST: ALBUTEROL SULF8.5 GM INH; ANORO ELLIPTA1 EACH INH; FUROSEMIDE20 MG PO; GLUCOPHAGE500 MG PO; LOVASTATIN20 MG PO; ROPINIROLE HCL1 MG PO; SOMA350 MG PO; TYLENOL W/CODEI1 TAB PO; VOLTAREN75 MG PO
[2019-10-18] MEDS ORDERED: PLAVIX75 MG PO (08:55)
[2019-10-18 08:57] VITALS: BP 123/72; Ht 165.1 cm; Wt 55.9 kg
[2019-10-18 09:10] LABS: BASOPHILS 0.1 % (0-2); EOSINOPHILS 1.5 % (0-7); HEMOGLOBIN 15.5 g/dL (12-16); IMMATURE GRANULOCYTES 0.2 % (0-5); LYMPHOCYTES 9.2 % (15-50); MCH 31.1 pg (26.0-34.0); MCV 94.4 fL (80.0-100.0); MEAN PLATELET VOLUME 9.9 fL (7.4-10.4); MONOCYTES 8.4 % (2-11); NEUTROPHILS 80.6 % (40-80); PLATELET COUNT 232 10x3/uL (130-400); RBC 4.98 10x6/uL (4.00-5.40); RDW 15.6 % (11.5-14.5); WBC 14.5 10x3/uL (4.8-10.8)
[2019-10-18 09:20] LABS: ANION GAP 11.1 mmol/L (8-16); CALCIUM 8.3 mg/dL (8.5-10.1); CARBON DIOXIDE 33.5 mmol/L (21.0-32.0); CREATININE - SERUM 1.2 mg/dL (0.6-1.3); POTASSIUM - SERUM 3.6 mmol/L (3.5-5.1)
--- NOTE | 2019-10-18 10:25 | NUR ---
PT RECEIVED VIA STRETCHER FROM [employer]. PT SLEEPING BUT VERBALLY AROUSABLE. PT PLACED ON CARDIAC MONITORS AND O2 VIA MASK AT 4L. HR TACHY 103, BP 114/60, RR 13, SAT 95. R GROIN SOFT, DRESSING CDI NO BLEEDING OR S/S HEMATOMA NOTED. PT FAMILY INSTRUCTED TO KEEP FLAT AND LEG STRAIGHT AND THEY VERBALIZED UNDERSTANDING. IV PATENT INFUSING VIA ORDERS. CALL LIGHT IN REACH.
--- NOTE | 2019-10-18 10:45 | NUR ---
PT STILL SLEEPING, VSS. R GROIN SOFT, DRESSING CDI NO BLEEDING OR S/S HEMATOMA NOTED. FAMILY REMAINS AT BS. CALL LIGHT IN REACH
--- NOTE | 2019-10-18 11:25 | NUR ---
DR SEBASTIAN AT BEDSIDE, DISCCUSED W PT FAMILY PROCEDURE RESULTS AND PLAN OF CARE. R GROIN SOFT, DRESSING REMAINS CDI NO S/S HEMATOMA. VSS. CALL LIGHT IN REACH. FAMILY REMAINS AT BS
--- NOTE | 2019-10-18 12:14 | NUR ---
PT CONTINUES SLEEPING. HR 91, BP 107/61, SAT 99, RR 11. R GROIN SOFT, DRESSING REMAINS CDI NO S/S HEMATOMA NOTED. LEG PINK AND WARM. CALL LIGHT IN REACH.
--- NOTE | 2019-10-18 12:32 | NUR ---
PT SLEEPING, VERBALLY AROUSABLE. VSS. GROIN SOFT, DRESSING CDI NO S/S HEMATOMA NOTED. CALL LIGHT IN REACH
--- NOTE | 2019-10-18 13:00 | NUR ---
PT MORE AWAKE, SOME CONFUSION NOTED. PT REMEMBERS WHY SHE IS HERE AFTER SHE WOKE UP A LITTLE. R GROIN SOFT, DRESSING CDI NO S/S HEMATOMA NOTED. CALL LIGHT IN REACH. SIPS OF CRANBERRY JUICE GIVEN PER REQUEST. O2 CHANGED FROM MASK TO O2 CANULA.
--- NOTE | 2019-10-18 13:35 | NUR ---
PT RESTING, NO COMPLAINTS OF CHEST PAIN OR DISCOMFORT. STATES BACK HURTING FROM LAYING FLAT SO LONG. LUNCH TRAY SERVED W SOUP AND JUICE. GROIN SOFT, DRESSING REMAINS CDI NO S/S HEMATOMA. LEG PINK AND WARM. FAMILY AT BEDSIDE. CALL LIGHT IN REACH
--- NOTE | 2019-10-18 14:07 | NUR ---
DISCHARGE INSTRUCTIONS REVIEWED W DAUGHTER AND PT, BOTH VERBALIZED UNDERSTANDING. IV REMOVED W CATH INTACT, MONITORS AND O2 REMOVED. GROIN SOFT, NO S/S HEMATOMA NOTED. PT UP TO DRESS W HELP FROM DAUGHTER.
--- NOTE | 2019-10-18 14:18 | NUR ---
PT DISCHARGED TO PRIVATE VEHICLE VIA WC. PT HAD ALL BELONGINGS AND DISCHARGE PAPERWORK IN HAND. OFFERED FOR PT TO STOP AT [facility], REFUSES STATES SHE WILL GO WHEN SHE GETS HOME
== END 2019-10-18 14:10 | disposition home or self-care (01) ==
LOC: D.CATH 07:46
PROVIDERS: ATTEND Internal Medicine Interventional Cardiology
DX: I25.119 Atherosclerotic heart disease of native coronary artery with unspecified angina pectoris (principal); R06.02 Shortness of breath; R06.09 Other forms of dyspnea; R60.9 Edema, unspecified; I10 Essential (primary) hypertension; E78.5 Hyperlipidemia, unspecified

== ENCOUNTER → 2019-11-08 07:10 | Outpatient (CLI) | payer MEDICARE, BC ==
[2019-10-18 08:57] VITALS: BMI 20.5
[~2019-11-08 07:10] MED LIST changes: +PLAVIX75 MG PO
[2019-11-09 06:09] LABS: ANA REFLEX - DIRECT Negative (Negative)
== END | disposition home or self-care (01) ==
LOC: D.RAD 11-06 10:30 → D.LAB 11-06 10:45 → D.RT 11-06 11:00 → D.LAB 07:10
PROVIDERS: ATTEND Internal Medicine Pulmonary Disease
DX: J44.9 Chronic obstructive pulmonary disease, unspecified (principal); I27.20 Pulmonary hypertension, unspecified; R53.83 Other fatigue

== ENCOUNTER 2020-03-08 17:09 | Inpatient (IN) | payer OTHER ==
[~2020-03-08] VITALS: Ht 165.1 cm; Wt 53.1 kg
[~2020-03-08 17:09] MED LIST changes: +METOPROLOL TART25 MG PO
[2020-03-11 13:36] VITALS: Ht 165.1 cm; Wt 53.1 kg
[2020-03-14 09:31] VITALS: BP 110/63
== END 2020-03-14 19:40 | DRG 951 ==
LOC: D.ER 17:09 → D.MS 18:55
PROVIDERS: ADMIT Legal Medicine; ATTEND Legal Medicine
DX: Z51.5 Encounter for palliative care (principal)